=== PATIENT | male | born 1980 | race Caucasian/White ===

== ENCOUNTER 2016-08-24 22:04 | Emergency (ER) | payer OTHER ==
[~2016-08-24] VITALS: Ht 177.8 cm; Wt 65.0 kg
[2016-08-24 22:20] VITALS: BP 126/76; PULSE 70; RESP 16; TEMP 98.4; O2SAT 98
[2016-08-24] MEDS ORDERED: BUPR4MIS SL (23:52)
[2016-08-24] MEDS ORDERED: SUBO8MIS SL (23:52)
[2016-08-25] MEDS ORDERED: CLIN1CAP5 PO (00:52)
[2016-08-25] MEDS ORDERED: CEPH-460 PO (00:52)
--- NOTE | 2016-08-25 00:58 | PD ---
HPI Chief Complaint: Skin Problem Time Seen by Provider: 00:49 Travel History International Travel<30 days: No Contact w/Intl Traveler<30days: No Traveled to known affect area: No History of Present Illness HPI 35-year-old male presents to the emergency department for complaint of one week of left knee pain and 1 day of redness to the lateral aspect of the left knee. Patient has superficial abrasion to the proximal lateral aspect of the left knee. No purulent drainage. No ascending erythema. No groin lymphadenopathy. No fever or chills. Patient is not diabetic. 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 Patient does not recall specific injury. Last tetanus in his patient was less than 5 years ago reportedly. Patient rates pain as 8/10 in intensity. PFSH Past Medical History Narrative Medical ADHD oral surgery; no apparent use since 2012; occasional alcohol use: Nursing notes reviewed ADHD: Yes (CHILDHOOD) Tetanus Vaccination: < 5 Years Influenza Vaccination: No ?: Not Past Surgical History Oral Surgery: Yes Social History Alcohol Use: Yes ("1 TO 2 DRINKS DAILY") Tobacco Use: No (QUIT TOBACCO: 2014, USES VAPORIZER) Substance Use: No (QUIT OPIOIDS: 2012) Allergies-Medications (Allergen,Severity, Reaction): Coded Allergies: No Known Allergies (Unverified , 08/24/16) Reported Meds & Prescriptions Reported Meds & Active Scripts Active Keflex (Cephalexin) 500 Mg Capsule 500 Mg PO Q6H 10 Days Clindamycin (Clindamycin HCl) 150 Mg Cap 300 Mg PO Q6H 7 Days Reported Suboxone Sublingual Film (Buprenorphine-Naloxone Sublingual Film) 4-1 Mg Film 1 Film SL BID Unique ID number required: Review of Systems Except as stated in HPI: all other systems reviewed are Neg General / Constitutional: No: Fever HENT: No: Congestion Cardiovascular: No: Chest Pain or Discomfort Respiratory: No: Shortness of Breath Gastrointestinal: No: Abdominal Pain Genitourinary: No: Flank Pain Musculoskeletal: Positive: Pain, No: Myalgias, Arthralgias, Limited ROM Skin: Positive Rash (left lateral knee left lateral knee) Neurologic: No: Weakness Hematologic/Lymphatic: No: Lymph Node Enlargement Physical Exam Narrative GENERAL: Well-developed well-nourished male in no acute distress no respiratory distress SKIN: Warm and dry. HEAD: Normocephalic. EYES: No scleral icterus. No injection or drainage. NECK: Supple, trachea midline. No JVD or lymphadenopathy. CARDIOVASCULAR: Regular rate and rhythm without murmurs, gallops, or rubs. RESPIRATORY: Breath sounds equal bilaterally. No accessory muscle use. GASTROINTESTINAL: Abdomen soft, non-tender, nondistended. MUSCULOSKELETAL: No cyanosis, or edema. Attention left knee area of superficial abrasion and associated erythema along the lateral aspect of the left knee with focal warmth and tenderness no ballotable or tense effusion no antalgic movement or limited range of motion of the knee on flexion extension and no instability on provocative testing. Limb is neurovascular tendon intact. No ascending erythema. Data Data Last Documented VS Vital Signs Date Time Temp Pulse Resp B/P Pulse Ox O2 Delivery O2 Flow Rate FiO2 08/24/16 22:20 98.4 70 16 126/76 98 Orders Knee, Complete (4vws) (08/25/16 ) Clindamycin (Cleocin) (08/25/16 01:00) Ketorolac Inj (Toradol Inj) (08/25/16 01:00) MDM Medical Decision Making Medical Screen Exam Complete: Yes Emergency Medical Condition: Yes Medical Record Reviewed: Yes Interpretation(s) knee xr: small amount of soft tissue swelling no acute bony injury no retained radiopaque foreign body FINDINGS: Four view examination of the left knee demonstrates no evidence of fracture or dislocation. Bony mineralization is normal. The articular surfaces are intact. The suprapatellar soft tissues have a normal configuration. CONCLUSION: No acute fracture. Pancho Blevins MD on August 25, 2016 at 1:47 Board Certified Radiologist. This report was verified electronically. Differential Diagnosis Focal cellulitis, prepatellar bursitis, also to consider septic arthritis Narrative Course Patient has non-antalgic smooth movement of the left knee without any obvious joint pain small area of soft tissue swelling and possible small non-ballotable non-tense effusion superficial abrasion to the superior lateral aspect of the left knee possible injury site of infectious/inflammatory process. Patient given first dose of antibiotic in the emergency department and is stable for outpatient management with oral antibiotic with encouragement follow-up with his primary care provider in the next 2 days or to return to the emergency department before for any concerns or change in condition. Diagnosis Primary Impression: Cellulitis of knee, left Referrals: Primary Care Physician 2 days Patient Instructions: General Instructions Additional Instructions: Keep site clean and dry May apply as tolerated call compresses or warm compresses for comfort purposes Complete course of antibiotic as prescribed Acetaminophen/Tylenol every 4 hours as needed for fever 100.4F or greater or for minor pain Ibuprofen/Advil/Motrin 600 mg as often as every 6 hours as needed for pain associated with inflammation or for fever 100.4F or greater Elevate left lower extremity intimately 24-48 hours avoid repetitive kneeling or squatting Med/Other Pt SpecificInfo: Prescription(s) given Scripts Cephalexin (Keflex)500 Mg [id number] Mg PO Q6H 10 Days Ref 0 Prov:Stormy Gaona MD 08/25/16 Clindamycin 150 Mg [id number] Mg PO Q6H 7 Days Ref 0 Prov:Stormy Gaona MD 08/25/16 Disposition: 01 DISCHARGE HOME Condition: Stable Stormy Gaona MD Aug 25, 2016 00:58
[2016-08-25] MEDS ORDERED: CLINDAMYCIN 150 MG CAP PO ONE (01:00)
[2016-08-25] MEDS ORDERED: KETOROLAC TROMETHAMINE 60 MG/2 ML (IM) VIAL IM ONE (01:00)
--- NOTE | 2016-08-25 01:48 | RADRPT ---
EXAM DATE/TIME: 08/25/2016 00:52 [facility] COMPARISON: No previous studies available for comparison. INDICATIONS : Left knee pain. MEDICAL HISTORY : None. SURGICAL HISTORY : None. ENCOUNTER: Initial ACUITY: 2 days PAIN SCORE: 2/10 LOCATION: Left knee. FINDINGS: Four view examination of the left knee demonstrates no evidence of fracture or dislocation. Bony min eralization is normal. The articular surfaces are intact. The suprapatellar soft tissues have a nor mal configuration. CONCLUSION: No acute fracture. Pancho Blevins MD on August 25, 2016 at 1:47 Board Certified Radiologist. This report was verified electronically.
== END 2016-08-25 01:59 | disposition home or self-care (01) ==
LOC: PHED 22:04
DX: L03.116 Cellulitis of left lower limb (principal); Z87.891 Personal history of nicotine dependence
CPT/HCPCS: 73564; 96372; 99284; J1885